=== PATIENT | female | born 1980 | race Two or more races ===

== ENCOUNTER 2022-12-17 10:02 | Emergency (ER) | payer OTHER ==
[~2022-12-17] VITALS: Ht 154.9 cm; Wt 88.1 kg
[2022-12-17 10:59] LABS: Urine Bacteria NONE SEEN /hpf (None Seen); Urine Blood TRACE /uL (Negative); Urine Mucus FEW (None Seen); Urine Specific Gravity 1.034 (1.001-1.035); Urine WBC 4 /hpf (0 - 5)
[2022-12-17 16:15] VITALS: BP 100/70
== END 2022-12-17 16:16 | disposition home or self-care (01) ==
LOC: ER 10:05
DX: S00.83XA Contusion of other part of head, initial encounter (principal); S10.93XA Contusion of unspecified part of neck, initial encounter; S40.012A Contusion of left shoulder, initial encounter; S40.011A Contusion of right shoulder, initial encounter; S40.022A Contusion of left upper arm, initial encounter; S40.021A Contusion of right upper arm, initial encounter; Y08.89XA Assault by other specified means, initial encounter; Y93.89 Activity, other specified; Y92.89 Other specified places as the place of occurrence of the external cause; Y99.8 Other external cause status
CPT/HCPCS: 70450; 72040; 73030; 81001